=== PATIENT | male | born 1960 | race Caucasian/White ===

== ENCOUNTER 2017-03-16 10:40 | Inpatient (IN) | payer SELFPAY ==
[~2017-03-16] VITALS: Ht 162.6 cm; Wt 94.9 kg
[2017-03-16] VITALS (13 sets, daily range): BP systolic 100–146; BP diastolic 49–76
[~2017-03-16 10:40] MED LIST: ASPIRIN EC81 MG PO; CEFTIN500 MG PO; CIPRO 500MG TA500 MG PO; EFFEXOR XR150 MG PO; FLEXERIL10 M1 PO; FLUOXETINE HYDR40 MG PO; KAPIDEX60 MG PO; MEDROL 4MG. DOSE4 MG PO; PERCOCET 5/3251 EACH PO; PRAVASTATIN SOD40 MG PO; PREDNISONE 20MG20 MG PO; ROBITUSSIN120 ML/BOT PO; TAMSULOSIN HYD0.4 MG PO
[2017-03-16 11:43] LABS: HEMOGLOBIN 12.5 g/dL (14.1-18.0); LYMPH % 29.1 % (10-50)
[2017-03-16] MEDS ORDERED: PRILOSEC20 M1 PO (11:58)
[2017-03-16] MEDS ORDERED: FLONASE 50 MCG16 GM (11:59)
[2017-03-16] MEDS ORDERED: XANAX 0.25MG0.25 MG PO (12:00)
[2017-03-16] MEDS ORDERED: LORATADINE 10MG10 M1 PO (12:00)
--- NOTE | 2017-03-16 13:58 | HISTORY AND PHYSICAL REPORT ---
Demographics: Admit date: 03/16/17 Chief complaint: SHINGLES PRIMARY DIAGNOSIS: DISSEMINATED SHINGLES Allergies: Coded Allergies: venlafaxine (From EFFEXOR) (05/21/15) History of present illness: History of present illness: 56 yr old male with history of mantle cell lymphoma seen today in clinic with painful rash. He reports uncomfortable back and buttock pain that started middle of last week, increasing in severity and then noticed the erythematous blistery rash on the left lower back. Since that time the rash has continued to erupt and now also involves the entire anterior, lateral and medial thigh. He also reports associated diarrhea, malaise and fever. Because of the large area involved, fevers and his history of bone marrow transplant in 2016 he was admitted for IV acyclovir and pain management. Past medical history: Family HX Diabetes No CAD Yes Hypertension Yes Hyperlipidemia Yes Cancer No TB No Immunization HX DT/Tetanus 5-10 YRS Flu THISFLUSEA Pneumonia REFUSES General Angina: No HI: No Hypertension? No Hyperlipidemia? Yes CHF? No COPD? No Asthma? Yes Hernia? No CVA? No Seizures? No Diabetes? No UTI? No Stones? No GB Disease: No Hepatitis? No Cataracts? No Glaucoma? No MRSA? No TB? No Anxiety? Yes Cancer? Yes (lymphoma) Additional hx: GERD, Mantle Cell Lymphoma Past Surgical HX Previous Surgery?Y L FOOT SURGERY Appendix Back Surgery Bone Marrow Transplant 2016 Current home meds: Reported Medications Pravastatin Sodium 40 MG PO QHS #30 Fluoxetine Hcl (Fluoxetine Hydrochloride) 40 MG PO DAILY #30 OMEPRAZOLE MAGNESIUM (Prilosec 20MG) 20 MG PO DAILY Fluticasone Propionate (Flonase 50 Mcg Nasal [place]) 1 SPRAY NA DAILY Loratadine (Loratadine 10MG Tablet) 10 MG PO DAILY Alprazolam (Xanax 0.25MG) 0.25 MG PO TID TAMSULOSIN HCL (Tamsulosin 0.4MG) 0.4 MG PO DAILY Social Hx: Smoking HX Tobacco No Alcohol Alcohol: No Hx of Drug Use Drug Use? No Patien't marital status is Patient's support system is good Review of systems: Constitutional chills, fever, malaise. Eyes No: no symptoms reported. Ears, Nose, Mouth, Throat No no symptoms reported Respiratory No: no symptoms reported. Cardiovascular No no symptoms reported Gastrointestinal/Abdominal diarrhea, poor appetite Genitourinary hesitancy. Musculoskeletal see HPI, back pain. Skin see HPI. Neurological Yes: numbness, tingling. Psychiatric Yes: anxious. Exam: Lab data for last 24 hours: Laboratory Tests 03/16/171124: Sodium 139, Potassium 3.9, Chloride 103, Carbon Dioxide 31, BUN 17, Creatinine 1.1, Estimated Creat Clear 102, Estimated GFR (MDRD) 69, Glucose 93, Calcium 8.4 L, Total Bilirubin 0.6, AST 11 L, ALT 25, Alkaline Phosphatase 87, Total Protein 6.2 L, Albumin 3.4, Globulin 2.8, Albumin/Globulin Ratio 1.2, WBC 3.5 L, RBC 4.02 L, Hgb 12.5 L, Hct 37.3 L, MCV 92.8, RDW 13.2, Plt Count 73 L, MPV 7.9, Gran % 60.4, Gran # 2.1, Lymphocytes % 29.1, Monocytes % 6.7, Eosinophils % 3.4, Basophils % 0.4, Lymphocytes # 1.0, Monocytes # 0.2, Eosinophils # 0.1, Basophils # 0.0, PUBS MCHC 33.6, MCH 31.2 Microbiology 03/16 1200 BLOOD: Anaerobic Blood Culture - RECD 03/16 1200 BLOOD: Aerobic Blood Culture - RECD 03/16 1125 BLOOD: Anaerobic Blood Culture - RECD 03/16 1125 BLOOD: Aerobic Blood Culture - RECD Admission vital signs: 1ST Vital Signs Result Date Time Pulse Ox 100 03/16 1120 B/P 139/61 03/16 1120 O2 Delivery ROOM AIR 03/16 1120 Temp 98.4 03/16 1120 Pulse 47 03/16 1120 Resp 20 03/16 1120 Additional information: Pleasant male, seated leaning to the right to alleviate pressure on left buttock and leg. Heart with RRR, lungs CTA. Neck supple without masses. Abdomen soft, NT /ND, BS present. No peripheral edema. Extensive erythematous vesicular rash left lower back, buttock and anterior/lateral/medial thigh to the proximal knee. Alert and oriented x 3 Plan: Problem List 1. Disseminated herpes zoster Assessment/Plan Rec IV acyclovir and scheduled gabapentin BID. Monitor intake and output, labs. Consult pain management for possible nerve block 2. History of bone marrow transplant 3. Immunosuppression Plan: see above at 2590
--- NOTE | 2017-03-16 17:36 | CONSULT NOTE ---
History of Present Illness Consult Information Date of Consultation: 03/16/17 Referring Provider: Heron Sanabria MD Reason for Consult/Visit: Active shingles outbreak. History of Present Illness: Very pleasant 56-year-old white male that we have consulted on today regarding acute pain secondary to herpetic neuralgia of the lumbar spine and LEFT leg to the knee. Patient with obvious outbreak of shingles. Patient has extreme point tenderness over the affected area. We discussed treatment options with the patient. I discussed in detail with the patient regarding epidural sympathetic block at the L2 to level. Patient wishes to proceed. Allergies Coded Allergies: venlafaxine (From EFFEXOR) (05/21/15) Current Home Medications Reported Medications Pravastatin Sodium 40 MG PO QHS #30 Fluoxetine Hcl (Fluoxetine Hydrochloride) 40 MG PO DAILY #30 OMEPRAZOLE MAGNESIUM (Prilosec 20MG) 20 MG PO DAILY Fluticasone Propionate (Flonase 50 Mcg Nasal [place]) 1 SPRAY NA DAILY Loratadine (Loratadine 10MG Tablet) 10 MG PO DAILY Alprazolam (Xanax 0.25MG) 0.25 MG PO TID TAMSULOSIN HCL (Tamsulosin 0.4MG) 0.4 MG PO DAILY Medical/Surgical/Social Hx Medical History Hypertension. Hyperlipidemia. Shingles Surgical History Previous Surgery?Y L FOOT SURGERY Appendix Back Surgery Family History Noncontributory Social History Tobacco Use: N Type: Packs/day: If you ae a former smoker-when did you quit? Have you smoked in the last 30 days? Do you dip or chew tobacco? Are you exposed to second hand smoke? Alcohol/Drug Use: [Denies] Occupation: [Unknown] Marital Status: Support System: [Fair] Review of Systems ROS Systems reviewed and negative: GI, , allergy/immunity, cardiovascular, constitutional, endocrine, Ear/Nose/Throat, eyes, heme, musculoskeletal (lumbar pain/post laminotomy sy), neuro, psychiatric, respiratory, skin (shingles) Other: Patient's awake alert oriented 3. In no acute distress. Flexion extension lumbar spine somewhat guarded secondary to pain. Deep tendon reflexes upper and lower extremities normal. Motor strength upper and lower extremities normal. There is no gross sensory deficit. Gait is normal. Positive straight leg raise test at 30 degrees bilaterally. Physical Exam/Findings Physical Exam Vital Signs Vital Signs Date Time Temp Pulse Resp B/P Pulse O2 O2 Flow FiO2 Ox Delivery Rate 03/16 1720 18 03/16 1654 50 20 140/76 100 03/16 1645 58 20 123/61 100 03/16 1633 60 20 122/60 100 03/16 1630 60 20 115/60 03/16 1625 60 20 115/60 97 03/16 1625 60 20 115/60 97 03/16 1620 98.3 62 20 116/49 97 ROOM AIR 03/16 1120 98.4 47 20 139/61 100 ROOM AIR General Appearance normal appearance, no apparent distress, active shingles lumbar spine LEFT hip and LEFT anterior thigh Respiratory Status No: respiratory distress. Cardiovascular regular rate/rhythm Neurologic alert, oriented x 3 Mental status normal mood/affect Skin lesions, pallor (obvious shingles outbreak lumb) Risk Assessment Opioid risk tool Opioid risk tool: CAGE-AID Questionaire CAGE-AID Questionaire Assessment/Plan Impression/Problem List 1. Disseminated herpes zoster Plan: Discuss options of treatment with the patient. We will proceed with lumbar synthetic block the L2 level. Also discussed repeat block on Thursday if possible with the patient. at 1735
--- NOTE | 2017-03-16 17:39 | Procedure Note ---
Procedure detail Date of procedure: 03/16/17 Anesthesiologist: Vinicio Lange Complications: None Pre-procedure diagnosis: Disseminated herpes zoster Post-procedure diagnosis: Same. Indications for procedure: Very pleasant 6-year-old white male with obvious shingles outbreak over the LEFT lumbar spine, LEFT hip, LEFT anterior thigh to the knee. Patient has extreme pain in these areas. We discussed in detail lumbar synthetic block the L2 level. He wishes to proceed. Procedure detail: Details of procedure is going to the patient. Consent form was signed. Patient was placed in the RIGHT lateral position. The area of the lumbar spine was cleansed using chlorhexidine as a cleansing solution. Markers placed at the L2-3 vertebral level. The skin and subcu tissue was anesthetized using 1 percent lidocaine and 25-gauge needle. Using a 17-gauge Touhy needle the epidural space was accessed using the [id number] technique. After negative aspiration 10 mL of 0.25 percent Marcaine and 4 mL of normal saline and 80 mg of Depo- Medrol was injected slowly. The needle was removed. Band-Aid applied. Patient tolerated the procedure without difficulty. Plan and disposition: Discussed in detail with the patient regarding the fact that his legs will be getting heavy and possibly numb. Also, discussed with the patient regarding the need for a second block on Thursday if possible. Patient was monitored for 20 minutes post procedure. Vital signs were normal. Report was given to the nurse regarding the synthetic block. at 4201
[2017-03-17 04:19] VITALS: BP 116/63
[2017-03-17 07:14] LABS: HEMOGLOBIN 12.8 g/dL (14.1-18.0); LYMPH # 0.8 K/mm3 (0.7-4.5); LYMPH % 19.3 % (10-50)
--- NOTE | 2017-03-17 07:25 | PHARMACY CLINIC NOTE ---
Patient Demographics Patient Demographics Admission date: 03/16/17 Date: 03/17/17 Time: 07 Allergies Coded Allergies: venlafaxine (From EFFEXOR) (05/21/15) HEIGHT- FT: 5 IN: 4.00 K.943 VTE General Information Labs: Laboratory Tests 03/17 03/16 0635 1125 Hematology Hgb (14.1 - 18.0 g/dL) 12.8 L 12.5 L Hct (42.0 - 52.0 %) 39.3 L 37.3 L Plt Count (142 - 424 K/mm3) 73 L 73 L Disclaimer The following section includes nursing documentation that has been pulled in for pharmacy review. Patient's VTE score: 3 Patient's VTE Risk: MOD RISK Clinical trial participant? No VTE prophylaxis NQF [id number] VTE prophylaxis ordered? Yes Type of prophylaxis/treatment: LISANDRO at 1220
[2017-03-17 07:57] VITALS: BP 105/57
--- NOTE | 2017-03-17 09:20 | ACUTE CARE PROGRESS NOTE (QUA) ---
Progress Notes Subjective Date 03/17/17 Time 0750 Note Patient tolerated spinal nerve block well. States pain resolved for 2-3 hours immediately following procedure. It has since returned. He continues to have a significant amount of buttocks and LEFT lower extremity pain. Alert and oriented 3. Heart with RRR, lungs clear and equal throughout. Abdomen soft, NT/ND, BS present. No peripheral edema. Extensive erythematous vesicular rash left lower back, buttock and anterior/lateral/medial thigh to the proximal knee. Patient/family reports: pain Nursing reports: no complaints Objective Findings Last VS-Temp:98.1 B/P:105/57 Pulse:59 Resp:14 SaO2:98 ROOM AIR Last weight lbs:209 oz:5 K.943 Method:Bed Scales Reviewed: medications, vital signs, lab results Assessment/Plan Problem List 1. Disseminated herpes zoster 2. History of bone marrow transplant 3. Immunosuppression Patient condition Stable Plan: continue current care This inpt stay is expected to cross 2 MNs from start of care Yes Comments: Continue IV acyclovir infusions. Continue gabapentin. I expect he will have some pain relief later today or tomorrow from his nerve block yesterday. If no improvement will consider repeating on Thursday. at 0920
[2017-03-17 10:17] VITALS: BP 105/57
[2017-03-17 15:50] VITALS: BP 119/76
[2017-03-17 19:45] VITALS: BP 135/76
[2017-03-17 19:55] VITALS: BP 135/76
[2017-03-18 04:00] VITALS: BP 119/67
--- NOTE | 2017-03-18 07:14 | ACUTE CARE PROGRESS NOTE (QUA) ---
Progress Notes Subjective Date 03/18/17 Time 0713 Note Patient feels better, much less pain, much less rash. No cardiopulmonary symptoms. No cough. Oropharynx clearing. Cardiopulmonary assessment unchanged, rashes drying, no new vesicles. Patient/family reports: feeling better, no complaints Objective Findings Last VS-Temp:97.5 B/P:119/67 Pulse:45 Resp:20 SaO2:96 ROOM AIR Last weight lbs:209 oz:5 K.943 Method:Bed Scales Reviewed: allergies, medications Assessment/Plan Problem List 1. Disseminated herpes zoster 2. History of bone marrow transplant 3. Immunosuppression Patient condition Improving Plan: initiate discharge plan This inpt stay is expected to cross 2 MNs from start of care Yes at 0713
[2017-03-18] MEDS ORDERED: MAGMTHWSH PO (07:17)
--- NOTE | 2017-03-18 07:17 | DISCHARGE SUMMARY STANDARD ---
Demographics Admit date: 03/16/17 Discharge date: 03/18/17 History of present illness History of present illness 56 yr old male with history of mantle cell lymphoma seen today in clinic with painful rash. He reports uncomfortable back and buttock pain that started middle of last week, increasing in severity and then noticed the erythematous blistery rash on the left lower back. Since that time the rash has continued to erupt and now also involves the entire anterior, lateral and medial thigh. He also reports associated diarrhea, malaise and fever. Because of the large area involved, fevers and his history of bone marrow transplant in 2016 he was admitted for IV acyclovir and pain management. Hospital Course Hospital Course: Patient was admitted, placed on intravenous acyclovir because of his remote history of immunosuppression and involvement of more than 1 dermatome. He tolerated this well. Gabapentin was given for pain as well as morphine, pain management was consulted and they performed a bedside lumbar epidural nerve block procedure which gave him immediate relief from couple of hours because of the Novocain component and then this morning has begun to really make a difference in his pain. He appears much more comfortable this morning on exam. He'll be discharged home, please see my discharge progress note for details. He' ll be placed on by mouth acyclovir, Tylenol 3 and gabapentin. He is also had some viral stomatitis and he will have his mouthwash dispensed that has been effective for him here. He will follow-up in 5 days in my office. Discharge diagnoses Problem List 1. Disseminated herpes zoster 2. History of bone marrow transplant 3. Immunosuppression Medications Medications: Discharge meds are as noted. Follow up Follow up in office in: 5 DAYS with: Yolanda Kaye APRN at 0716
[2017-03-18] MEDS ORDERED: ACYCLOVIR800 MG PO (07:19)
[2017-03-18] MEDS ORDERED: GABAPENTIN300 MG PO (07:19)
[2017-03-18] MEDS ORDERED: TYLENOL WITH CO1 TA1 PO (07:19)
[2017-03-18 08:00] VITALS: BP 144/75
[2017-03-18 09:03] VITALS: BP 144/75
--- OUTSIDE RECORDS SUMMARY | 2017-03-26 02:58 | External Medical Summary Rpt | CCD ---
Author Author , DRAGAN ARCHIBALD Address Unknown Phone [email or web address] Purpose Continuity of Care Document - through 2016
--- OUTSIDE RECORDS SUMMARY | 2017-03-26 02:58 | External Medical Summary Rpt | CCD ---
Author Author , DRAGAN Organization [employer] Address Unknown Phone [email or web address] Purpose Continuity of Care Document - 08-01-2016 through 2016 Results Labs Lab Lab Date Result Refere Interp Status Commen Order Detail nces retati t Range on LDH SerPl L to P-cCnc (01-05-2017 10:58) LDH 160 U/L 116-250 complet SerPl L 017 ed to 10:58 P-cCnc Urate SerPl-mCnc (01-05-2017 10:58) Urate 6.5 3.7-8.0 complet SerPl-m 017 mg/dL ed Cnc 10:58 LDH SerPl L to P-cCnc (11-12-2016 10:34) LDH 169 U/L 116-250 complet SerPl L 017 ed to 10:34 P-cCnc Ferritin SerPl-mCnc (11-12-2016 10:34) Ferriti 172 30-400 complet n 017 ng/mL ed SerPl-m 10:34 Cnc Bas Metab 2000 Pnl SerPl (08-01-2016 11:37) Glucose 86 70-130 complet BldC 017 mg/dL ed Glucomt 11:37 r-mCnc
--- OUTSIDE RECORDS SUMMARY | 2017-03-26 02:58 | External Medical Summary Rpt | CCD ---
Author Author , DRAGAN ARCHIBALD Address Unknown Phone [email or web address] Purpose Continuity of Care Document - through 2016
--- OUTSIDE RECORDS SUMMARY | 2017-03-26 02:58 | External Medical Summary Rpt | CCD ---
Author Author , DRAGAN Organization [employer] Address Unknown Phone [email or web address] Purpose Continuity of Care Document - 08-01-2016 [...]
--- OUTSIDE RECORDS SUMMARY | 2017-03-26 02:59 | External Medical Summary Rpt ---
Author Author RUDDYSHAWN Tramaine, [employer] Organization [employer] Address Unknown Phone Unavailable Results Basic metabolic panel in Blood Observa Value Referen Units Interpr Notes Date tion ce etation Range Urea 7 - 18 mg/dL No No Oct 3 nitrogen informati informati 2017 6:35 [Mass/vol on in on in AM ume] in source source Serum or data data Plasma Calcium 8.5 - mg/dL Low No Oct 3 [Mass/vol 10.1 informati 2017 6:35 ume] in on in AM Serum or source Plasma data Chloride 98 - 107 mmoL/L Normal No Oct 3 [Moles/vo informati 2017 6:35 lume] in on in AM Serum or source Plasma data Carbon 21.0 - mmoL/L Normal No Oct 3 dioxide, 32.0 informati 2017 6:35 total on in AM [Moles/vo source lume] in data Serum or Plasma Creatinin 0.70 - mg/dL Normal No Oct 3 e 1.30 informati 2017 6:35 [Mass/vol on in AM ume] in source Serum or data Plasma Creatinin 50 - 200 ML/MIN Normal No Oct 3 e renal informati 2017 6:35 clearance on in AM source predicted data by Cockcroft -Gault formula Estimated >60 ML/MIN No REFERENCE Oct 3 informati RANGE: 2017 6:35 glomerula on in >60 AM r source ML/MIN/1. filtratio data 73 SQUARE n rate METERSIf (GF this patient is -A merican, then multiply theresult by 1.210. Glucose 74 - 106 mg/dL High No Oct 3 [Mass/vol informati 2017 6:35 ume] in on in AM Serum or source Plasma data Potassium 3.5 - 5.1 mmoL/L Normal No Oct 3 informati 2017 6:35 [Moles/vo on in AM lume] in source Serum or data Plasma Sodium 136 - 145 mmoL/L Normal No Oct 3 [Moles/vo informati 2017 6:35 lume] in on in AM Serum or source Plasma data CBC W Auto Differential panel in Blood Observa Value Referen Units Interpr Notes Date tion ce etation Range Granulocy 1.3 - 8.0 K/mm3 Normal No Mar 17 anil informati 2016 6:35 [#/volume on in AM ] in source Blood by data Automated count Granulocy 37.0 - % Normal No Mar 17 anil/100 80.0 informati 2017 6:35 leukocyte on in AM s in source Blood by data Automated count Hematocri 42.0 - % Low No Mar 17 t [Volume 52.0 informati 2016 6:35 on in AM Fraction] source of Blood data Hemoglobi 14.1 - g/dL Low No Mar 17 n 18.0 informati 2016 6:35 [Mass/vol on in AM ume] in source Blood data Lymphocyt 0.7 - 4.5 K/mm3 Normal No Mar 17 es informati 2016 6:35 [#/volume on in AM ] in source Unspecifi data ed specimen by Automated count Lymphocyt 10 - 50 % Normal No Mar 17 es informati 2016 6:35 [#/volume on in AM ] in source Unspecifi data ed specimen by Automated count Erythrocy 27 - 31.2 pg Normal No Mar 17 te mean informati 2016 6:35 corpuscul on in AM ar source hemoglobi data n [Entitic mass] Erythrocy 31.8 - g/dl Normal No Mar 17 te mean 35.4 informati 2016 6:35 corpuscul on in AM ar source hemoglobi data n concentra tion [Mass/vol ume] by Automated count Erythrocy 82.2 - fL Normal No Mar 17 te mean 97.8 informati 2016 6:35 corpuscul on in AM ar volume source [Entitic data volume] by Automated count Monocytes 0.1 - 1.0 K/mm3 Normal No Mar 17 informati 2017 6:35 [#/volume on in AM ] in source Blood by data Automated count Monocytes 1.7 - 9.3 % Normal No Mar 17 informati 2017 6:35 leukocyte on in AM s in source Blood by data Automated count Platelets 142 - 424 K/mm3 Low No Mar 17 informati 2016 6:35 [#/volume on in AM ] in source Blood data Erythrocy 4.6 - 6.2 M/mm3 Low No Oct 3 anil informati 2017 6:35 [#/volume on in AM ] in source Amniotic data fluid Erythrocy 11.5 - % Normal No Oct 3 te 17.5 informati 2017 6:35 distribut on in AM ion width source [Entitic data volume] by Automated count Leukocyte 4.8 - K/mm3 Low No Oct 3 s 10.8 informati 2017 6:35 [#/volume on in AM ] in source Blood data Comprehensive metabolic 2000 panel in Serum or Plasma Observa Value Referen Units Interpr Notes Date tion ce etation Range Albumin/G 1.1 - 1.8 No Normal No Oct 2 lobulin informati informati 2016 [Mass on in on in 11:25 AM ratio] in source source Serum or data data Plasma Albumin 3.4 - 5.0 gm/dL Normal No Oct 2 [Mass/vol informati 2017 ume] in on in 11:25 AM Serum or source Plasma data Alkaline 46 - 116 U/L Normal No Oct 2 phosphata informati 2016 se on in 11:25 AM [Enzymati source c data activity/ volume] in Serum or Plasma Bilirubin 0.2 - 1.0 mg/dL Normal No Oct 2 .total informati 2016 [Mass/vol on in 11:25 AM ume] in source Serum or data Plasma Urea 7 - 18 mg/dL Normal No Oct 2 nitrogen informati 2016 [Mass/vol on in 11:25 AM ume] in source Serum or data Plasma Calcium 8.5 - mg/dL Low No Oct 2 [Mass/vol 10.1 informati 2016 ume] in on in 11:25 AM Serum or source Plasma data Chloride 98 - 107 mmoL/L Normal No Oct 2 [Moles/vo informati 2017 lume] in on in 11:25 AM Serum or source Plasma data Carbon 21.0 - mmoL/L Normal No Oct 2 dioxide, 32.0 informati 2017 total on in 11:25 AM [Moles/vo source lume] in data Serum or Plasma Creatinin 0.70 - mg/dL Normal No Oct 2 e 1.30 informati 2017 [Mass/vol on in 11:25 AM ume] in source Serum or data Plasma Creatinin 50 - 200 ML/MIN Normal No Oct 2 e renal informati 2017 clearance on in 11:25 AM source predicted data by Cockcroft -Gault formula Estimated >60 ML/MIN No REFERENCE Oct 2 informati RANGE: 2017 glomerula on in >60 11:25 AM r source ML/MIN/1. filtratio data 73 SQUARE n rate METERSIf (GF this patient is -A merican, then multiply theresult by 1.210. Globulin 1.3 - 3.2 gm/dL Normal No Mar 2 [Mass/vol informati 2016 ume] in on in 11:25 AM Serum source data Glucose 74 - 106 mg/dL Normal No Mar 2 [Mass/vol informati 2016 ume] in on in 11:25 AM Serum or source Plasma data Potassium 3.5 - 5.1 mmoL/L Normal No Mar 16 inform2016 [Moles/vo on in 11:25 AM lume] in source Serum or data Plasma Sodium 136 - 145 mmoL/L Normal No Mar 2 [Moles/vo informati 2016 lume] in on in 11:25 AM Serum or source Plasma data Aspartate 15 - 37 U/L Low No Mar 162016 aminotran on in 11:25 AM sferase source [Enzymati data c activity/ volume] in Serum or Plasma Alanine 12 - 78 U/L Normal No Mar 16 aminotran informati 2016 sferase on in 11:25 AM [Enzymati source c data activity/ volume] in Serum or Plasma Protein 6.4 - 8.2 gm/dL Low No Mar 2 [Mass/vol informati 2016 ume] in on in 11:25 AM Serum or source Plasma data CBC W Auto Differential panel in Blood Observa Value Referen Units Interpr Notes Date tion ce etation Range Basophils 0 - 0.2 K/MM3 Normal No Mar 16 inform2016 [#/volume on in 11:25 AM ] in source Blood by data Automated count Basophils 0.1 - 2.0 % Normal No Mar 162016 leukocyte on in 11:25 AM s in source Blood by data Automated count Eosinophi 0.0 - 0.4 K/mm3 Normal No Mar 16 ls informati 2016 [#/volume on in 11:25 AM ] in source Blood by data Automated count Eosinophi 0.1 - % Normal No Mar 16 ls/100 12.0 informati 2016 leukocyte on in 11:25 AM s in source Blood by data Automated count Granulocy 1.3 - 8.0 K/mm3 Normal No Mar 2 anil 2016 [#/volume on in 11:25 AM ] in source Blood by data Automated count Granulocy 37.0 - % Normal No Mar 16 anil/100 80.0 informati 2016 leukocyte on in 11:25 AM s in source Blood by data Automated count Hematocri 42.0 - % Low No Mar 16 t [Volume 52.0 informati 2016 on in 11:25 AM Fraction] source of Blood data Hemoglobi 14.1 - g/dL Low No Mar 16 n 18.0 informati 2016 [Mass/vol on in 11:25 AM ume] in source Blood data Lymphocyt 0.7 - 4.5 K/mm3 Normal No Mar 16 es informati 2016 [#/volume on in 11:25 AM ] in source Unspecifi data ed specimen by Automated count Lymphocyt 10 - 50 % Normal No Mar 16 es informati 2016 [#/volume on in 11:25 AM ] in source Unspecifi data ed specimen by Automated count Erythrocy 27 - 31.2 pg Normal No Mar 16 te mean informati 2016 corpuscul on in 11:25 AM ar source hemoglobi data n [Entitic mass] Erythrocy 31.8 - g/dl Normal No Mar 16 te mean 35.4 informati 2016 corpuscul on in 11:25 AM ar source hemoglobi data n concentra tion [Mass/vol ume] by Automated count Erythrocy 82.2 - fl Normal No Mar 16 te mean 97.8 informati 2016 corpuscul on in 11:25 AM ar volume source [Entitic data volume] by Automated count Monocytes 0.1 - 1.0 K/mm3 Normal No Mar 16 informati 2016 [#/volume on in 11:25 AM ] in source Blood by data Automated count Monocytes 1.7 - 9.3 % Normal No Mar 2 /100 informati 2016 leukocyte on in 11:25 AM s in source Blood by data Automated count Platelet 7.4 - fl Normal No Mar 2 mean 10.4 informati 2016 volume on in 11:25 AM [Entitic source volume] data in Blood by Automated count Platelets 142 - 424 K/mm3 Low No Mar 2 informati 2016 [#/volume on in 11:25 AM ] in source Blood data Erythrocy 4.6 - 6.2 M/mm3 Low No Mar 2 anil informati 2016 [#/volume on in 11:25 AM ] in source Amniotic data fluid Erythrocy 11.5 - % Normal No Oct 2 te 17.5 informati 2017 distribut on in 11:25 AM ion width source [Entitic data volume] by Automated count Leukocyte 4.8 - K/MM3 Low No Oct 2 s 10.8 informati 2017 [#/volume on in 11:25 AM ] in source Blood data
--- OUTSIDE RECORDS SUMMARY | 2017-03-26 02:59 | External Medical Summary Rpt | CCD ---
Author Author , DRAGAN Organization DRAGAN Address Unknown Phone [email or web address] Immunization Name Date Rout CVX Reac Dose Comm Prov Is Faci e tion ent ider Refu lity Give sed n Infl 11-2 0.5 Hist LEXC No LEXC uenz 2-20 mL oric MAXIMINO MAXIMINO a 16 al Quad Info rmat W/Pr ion es - Sour ce Unsp ecif ied Hep 05-0 43 999 Hist H205 No H205 B, 8-20 oric adul 01 al t Info rmat ion - Sour ce Unsp ecif ied Hep 10-0 43 999 Hist H205 No H205 B, 2-20 oric adul 00 al t Info rmat ion - Sour ce Unsp ecif ied
--- OUTSIDE RECORDS SUMMARY | 2017-03-26 02:59 | External Medical Summary Rpt | CCD ---
Author Author , DRAGAN Organization DRAGAN Address Unknown Phone [email or web address] Immunization Name Date Rout CVX Reac Dose [...]
== END 2017-03-18 09:05 | disposition home or self-care (01) | DRG 866 ==
LOC: 2ND 10:40
PROVIDERS: Internal Medicine Adolescent Medicine
PROC: 3E0R33Z Introduction of Anti-inflammatory into Spinal Canal, Percutaneous Approach (ICD-10-PCS; principal; 2017-03-16)
PROC: 3E0R3BZ Introduction of Anesthetic Agent into Spinal Canal, Percutaneous Approach (ICD-10-PCS; 2017-03-16)
DX: B02.7 Disseminated zoster (principal); E78.5 Hyperlipidemia, unspecified; J45.909 Unspecified asthma, uncomplicated; K21.9 Gastro-esophageal reflux disease without esophagitis; F41.9 Anxiety disorder, unspecified; R19.7 Diarrhea, unspecified; Z88.8 Allergy status to other drugs, medicaments and biological substances; Z82.49 Family history of ischemic heart disease and other diseases of the circulatory system; Z79.899 Other long term (current) drug therapy; Z85.72 Personal history of non-Hodgkin lymphomas
CPT/HCPCS: J1040